=== PATIENT | male | born 1940 | race African-American/Black ===

== ENCOUNTER 2019-07-30 12:24 | Emergency (ER) | payer BC, MEDICARE, OTHER ==
[~2019-07-30] VITALS: Ht 172.7 cm; Wt 55.0 kg
[2019-07-30 14:12] LABS: CHLORIDE 105 mEq/L (98-107)
[2019-07-30 14:16] LABS: BASOPHILS % 0.4 % (0.0-2.0); EOSINOPHILS % 5.7 % (0.0-5.0); HEMATOCRIT. 45.6 % (42.0-52.0); HEMOGLOBIN. 15.4 g/dL (14.0-18.0); LYMPHOCYTES % 37.3 % (20.0-50.0); MEAN CORPUSCULAR HEMOGLOBIN 31.4 pg (28.0-32.0); MEAN PLATELET VOLUME 9.5 fl (7.4-10.4); MONOCYTES % 10.4 % (2.0-8.0); NEUTROPHILS % 46.2 % (40.0-76.0); PLATELET 178 x1000/uL (130-400); RED BLOOD CELL COUNT 4.91 mill/uL (4.7-6.1); RED CELL DISTRIBUTION WIDTH 12.8 % (11.6-14.6)
[2019-07-30 14:23] LABS: D-DIMER 0.36 mg/L FEU (<0.50); PARTIAL THROMBOPLASTIN TIME 27.3 sec (23.4-31.0); PROTHROMBIN TIME 10.9 sec (9.6-11.0)
[2019-07-30] MEDS ORDERED: POTASSIUM CHLORIDE 20MEQ TABLET SR PO ONE (14:45)
[2019-07-30 15:57] VITALS: BP 140/89
== END 2019-07-30 17:29 | disposition short-term general hospital (02) ==
LOC: ER 12:24
DX: R07.89 Other chest pain (principal); I10 Essential (primary) hypertension; E87.6 Hypokalemia
CPT/HCPCS: 36415; 71045; 80053; 83880; 84484; 85025; 85379; 93005; 99285